=== PATIENT | female | born 1975 | race Caucasian/White ===

== ENCOUNTER 2018-01-22 10:47 | Observation (INO) | payer OTHER ==
[~2018-01-22] VITALS: Ht 167.6 cm; Wt 90.3 kg
[2018-01-22] MEDS ORDERED: FUROSEMIDE INJ 10 MG/ML 2 ML VIAL IV PRN (16:00)
[2018-01-22] MEDS ORDERED: SODIUM CHLORIDE 0.9% 250ML 250 ML IV ONE (16:00)
[2018-01-22 16:55] VITALS: BP 109/56
[2018-01-22 17:05] LABS: BASOPHILS % 0.6 % (0.0-1.0); EOSINOPHILS # (AUTO) 0.2 (0.0-0.4); EOSINOPHILS % 2.2 % (0.0-6.0); LYMPHOCYTES # (AUTO) 1.9 (1.0-3.2); LYMPHOCYTES % 26.5 % (18.0-39.1); MEAN CORPUSCULAR HGB CONC 25.6 g/dL (31-35); MEAN CORPUSCULAR VOLUME 58.8 fL (81-99); MONOCYTES # (AUTO) 0.5 (0.2-0.8); MONOCYTES % 6.5 % (4.4-11.3); NEUTROPHILS # (AUTO) 4.6 (2.1-6.9); NEUTROPHILS % 63.8 % (38.7-80.0); PLATELET COUNT 415 x10e3/uL (140-360); RED BLOOD COUNT 3.79 x10e6/uL (3.6-5.1); RED CELL DISTRIBUTION WIDTH 19.4 % (11.7-14.4)
[2018-01-22 17:09] LABS: HEMATOCRIT 22.3 % (34.2-44.1); HEMOGLOBIN 5.7 g/dL (12.0-16.0)
[2018-01-22 17:48] LABS: % IRON SATURATION 2 % (15-50); IRON 10 ug/dL (50-170); TOTAL IRON BINDING CAPACITY 633 ug/dL (261-478); TRANSFERRIN 452 mg/dL (180-382)
--- NOTE | 2018-01-22 18:44 | History and Physical ---
This 42-year-old female comes in with anemia, symptomatic. HISTORY OF PRESENT ILLNESS: Ms. Ac is a 42-year-old female with a history of apparent menorrhagia for the last couple of years. She has been having irregular bleeding of the uterus. Two months ago the patient started to have some palpitations. She did not think much of it, but yesterday the patient came to our office with symptomatic tachycardia and shortness of breath. She was found to have a pulse of about 120 per minute, just walking a few steps had a lot of pallor in her eyes, and checked her hemoglobin and hematocrit which was 5.6, and the patient was sent here for blood transfusion. PAST MEDICAL HISTORY: No medical history except for the menorrhagia. The patient has not seen an OB in a long time. PAST SURGICAL HISTORY: History of tummy tuck and also tonsillectomy. REVIEW OF SYSTEMS: Positive for chest pain, positive for shortness of breath, positive for palpitations. No nausea, vomiting, diarrhea, no constipation, no rectal bleeding. Positive for interim bleeding as mentioned above. No diplopia, no blurry vision. The patient is very fatigued. PHYSICAL EXAMINATION GENERAL: Alert and oriented x3. VITAL SIGNS: Temperature 98.1, blood pressure 109/56, pulse oximetry 99%, respirations 18, pulse 81 at this time. HEENT: Normocephalic, atraumatic. The patient has pallor. CVS: S1 and S2. Regular rate and rhythm. ABDOMEN: Nontender, nondistended. EXTREMITIES: No cyanosis, clubbing or edema. ASSESSMENT: Acute blood loss anemia. PLAN: Transfuse 2 units of packed red blood cells and monitor hemoglobin and hematocrit post transfusion. Plan to see OB. The patient needs an OB checkup. Will go ahead and consult Dr. Collier. Further recommendations depending on clinical course. Will continue to monitor the patient. Will keep her on telemetry. Job#: [id number]
[2018-01-22 19:10] VITALS: BP 104/67
[2018-01-22] MEDS ORDERED: SODIUM CHLORIDE 0.9% 250ML 250 ML ONE (20:03)
[2018-01-22] MEDS ORDERED: ACETAMINOPHEN 325 MG TAB PO PRN (20:15)
[2018-01-22 22:00] VITALS: BP 104/67
[2018-01-23 00:15] VITALS: BP 96/58
[2018-01-23 03:30] VITALS: BP 109/70
[2018-01-23 06:17] LABS: BASOPHILS % 0.5 % (0.0-1.0); EOSINOPHILS # (AUTO) 0.3 (0.0-0.4); EOSINOPHILS % 3.3 % (0.0-6.0); HEMATOCRIT 27.6 % (34.2-44.1); HEMOGLOBIN 7.8 g/dL (12.0-16.0); LYMPHOCYTES # (AUTO) 3.2 (1.0-3.2); LYMPHOCYTES % 36.3 % (18.0-39.1); MEAN CORPUSCULAR HEMOGLOBIN 17.7 pg (28-32); MEAN CORPUSCULAR HGB CONC 28.3 g/dL (31-35); MEAN CORPUSCULAR VOLUME 62.6 fL (81-99); MONOCYTES # (AUTO) 0.8 (0.2-0.8); NEUTROPHILS # (AUTO) 4.5 (2.1-6.9); NEUTROPHILS % 50.7 % (38.7-80.0); PLATELET COUNT 385 x10e3/uL (140-360); RED BLOOD COUNT 4.41 x10e6/uL (3.6-5.1); RED CELL DISTRIBUTION WIDTH 25.3 % (11.7-14.4)
[2018-01-23 06:41] LABS: ANION GAP 13.1 mmol/L (8-16); BLOOD UREA NITROGEN 12 mg/dL (7-26); BUN/CREATININE RATIO 18 (6-25); CALCIUM 9.2 mg/dL (8.4-10.2); CARBON DIOXIDE 21 mmol/L (22-29); CHLORIDE 108 mmol/L (98-107); CREATININE, SERUM 0.68 mg/dL (0.57-1.11); EST GLOMERULAR FILTRATION RATE > 60 ML/MIN (60-); GLUCOSE 100 mg/dL (74-118); POTASSIUM 4.1 mmol/L (3.5-5.1); SODIUM 138 mmol/L (136-145)
[2018-01-23 07:30] LABS: RBC MORPHOLOGY COMMENT ABNORMAL
[2018-01-23 07:34] LABS: PLATELET ESTIMATE ADEQUATE; PLATELET MORPHOLOGY COMMENT NORMAL
[2018-01-23 07:35] LABS: ANISOCYTOSIS MODE; ELLIPTOCYTE, RBC MODERATE; HYPOCHROMASIA MODERATE; POIKILOCYTOSIS SLIGHT
[2018-01-23] MEDS ORDERED: SODIUM CHLORIDE 0.9% 250ML 250 ML IV ONE (07:45)
[2018-01-23] MEDS ORDERED: FUROSEMIDE INJ 10 MG/ML 2 ML VIAL IV ONE (07:45)
[2018-01-23 07:47] VITALS: BP 126/69
[2018-01-23] MEDS ORDERED: IRON SUCROSE 100 MG in SODIUM CHLORIDE 0.9% 100 ML 100 ML IV SCH (10:00)
[2018-01-23 11:27] VITALS: BP 122/74
[2018-01-23] MEDS ORDERED: SODIUM CHLORIDE 0.9% 250ML 250 ML ONE (11:52)
[2018-01-23 14:39] VITALS: BP 122/74
[2018-01-23 15:45] VITALS: BP 117/74
[2018-01-23] MEDS ORDERED: SPRINTEC1 EACH PO (18:27)
[2018-01-23] MEDS ORDERED: COLACE100 MG PO (18:27)
[2018-01-23] MEDS ORDERED: IRON PO (18:28)
--- NOTE | 2018-01-24 13:06 | Diagnostic Imaging Report ---
PROCEDURE: Transabdominal and transvaginal ultrasound imaging of the pelvis was performed. TECHNIQUE: COMPARISON: None. INDICATIONS: BLOOD LOSS FINDINGS: UTERUS: The uterus measures 10.2 x 6.4 x 7.0 cm. The endometrial echocomplex measures 1.8 cm. Multiple anechoic regions are seen throughout the cervix, the largest measuring 1.5 x 1.3 x 1.2 cm. Increased vascularity is present in the region of the cervix. Focal 0.9 x 0.5 x 1.2 cm lesion is present in the superior portion of the uterus. OVARIES/ADNEXA: No adnexal mass. Right ovary 2.7 x 1.9 x 3.3 cm. The left ovary is not visualized. PELVIS: No free fluid. IMPRESSION: Increased vascularity of the cervix and increased thickening of the endometrium are indeterminate. An MRI of the pelvis with contrast may provide additional information for further characterization. Dictated by: Dillon Guerrero M.D. on 01/24/2018 at 13:07 Electronically approved by: Dillon Guerrero M.D. on 01/24/2018 at 13:07
== END 2018-01-23 18:44 | disposition home or self-care (01) ==
LOC: IMCU 14:47
PROVIDERS: ADMIT Family Medicine; ATTEND Family Medicine
DX: D62 Acute posthemorrhagic anemia (principal); N92.0 Excessive and frequent menstruation with regular cycle; D50.9 Iron deficiency anemia, unspecified; Z91.040 Latex allergy status
CPT/HCPCS: 36430; P9016; 36415; 76830; 80048; 83540; 84466; 85014; 85018; 85025; 86850; 86900; 86920; G0378; J1756; J1940; J7050

== ENCOUNTER 2019-08-18 11:21 | Inpatient (IN) | payer OTHER ==
[~2019-08-18] VITALS: Ht 170.2 cm; Wt 98.4 kg
[~2019-08-18 11:21] MED LIST: COLACE100 MG PO; IRON PO; SPRINTEC1 EACH PO
--- OUTSIDE RECORDS SUMMARY | 2019-08-18 11:24 | XMS REPORT ---
[facility] Address Unknown Phone Unavailable Care Team Providers Care Software Security Consultant Name Role Phone Yanci ORTEGA Unavailable Unavailable Payers Payer Name Policy Type Policy Number Effective Date Expiration Date Problems This patient has no known problems. Allergies, Adverse Reactions, Alerts Allergy Name Allergy Type Status Severity Reaction(s) Onset Date Inactive Date Treating Clinician Comments latex DA Active NE 2013-06-26 00:00:00 promethazine HCl DA Active SV 2013-06-12 00:00:00 Medications This patient has no known medications. Results Test Description Test Time Test Comments Text Results Atomic Results Result Comments [place] [address] Patient Name: NATA AWAN MR #: [id number] : 1975 Age/Sex: 42/F Req #: [id number] Adm Physician: KINGSLEY ORTEGA MD Ordered by: DOMENIC STOKES DO Report #: [id number] Location: [facility] Room/Bed: [place] [address] Procedure: [id number] US/US TRANSVAGINAL Exam Date: Exam Time: REPORT STATUS: Signed PROCEDURE: Transabdominal and transvaginal ultrasound imaging of the pelvis was performed. TECHNIQUE: COMPARISON: None. INDICATIONS: BLOOD LOSS FINDINGS: UTERUS: The uterus measures 10.2 x 6.4 x 7.0 cm. The endometrial echocomplex measures 1.8 cm. Multiple anechoic regions are seen throughout the cervix, the largest measuring 1.5 x 1.3 x 1.2 cm. Increased vascularity is present in the region of the cervix. Focal 0.9 x 0.5 x 1.2 cm lesion is present in the superior portion of the uterus. OVARIES/ADNEXA: No adnexal mass. Right ovary 2.7 x 1.9 x 3.3 cm. The left ovary is not visualized. PELVIS: No free fluid. IMPRESSION: Increased vascularity of the cervix and increased thickening of the endometrium are indeterminate. An MRI of the pe lvis with contrast may provide additional information for further characterization. Dictated by: Brian Henderson M.D. on 01/24/2018 at 13:07 Electronically approved by: Brian Henderson M.D. on 01/24/2018 at 13:07 Dictated By: BRIAN HENDERSON MD 1305 Transcribed By: SUMI on 01/24/18 1307 COPY TO: DOMENIC STOKES DO
[2019-08-18] MEDS ORDERED: MISOPROSTOL 100 MCG TAB PO ONE (12:02)
[2019-08-18 12:06] LABS: BASOPHILS % 0.3 % (0.0-1.0); EOSINOPHILS # (AUTO) 0.2 (0.0-0.4); EOSINOPHILS % 1.3 % (0.0-6.0); HEMATOCRIT 37.1 % (34.2-44.1); HEMOGLOBIN 12.5 g/dL (12.0-16.0); LYMPHOCYTES # (AUTO) 2.1 (1.0-3.2); LYMPHOCYTES % 17.9 % (18.0-39.1); MEAN CORPUSCULAR HEMOGLOBIN 30.5 pg (28-32); MEAN CORPUSCULAR HGB CONC 33.7 g/dL (31-35); MEAN CORPUSCULAR VOLUME 90.5 fL (81-99); MONOCYTES # (AUTO) 0.6 (0.2-0.8); MONOCYTES % 5.2 % (4.4-11.3); NEUTROPHILS # (AUTO) 8.8 (2.1-6.9); PLATELET COUNT 309 x10e3/uL (140-360); RED CELL DISTRIBUTION WIDTH 12.7 % (11.7-14.4)
[2019-08-18 12:22] LABS: ALANINE AMINOTRANSFERASE 30 IU/L (0-55); ALBUMIN 3.6 g/dL (3.5-5.0); ALKALINE PHOSPHATASE 77 IU/L (40-150); ANION GAP 13.5 mmol/L (8-16); BLOOD UREA NITROGEN 8 mg/dL (7-26); BUN/CREATININE RATIO 11 (6-25); CALCIUM 9.3 mg/dL (8.4-10.2); CARBON DIOXIDE 24 mmol/L (22-29); CHLORIDE 104 mmol/L (98-107); CREATININE, SERUM 0.76 mg/dL (0.57-1.11); EST GLOMERULAR FILTRATION RATE > 60 ML/MIN (60-); GLUCOSE 163 mg/dL (74-118); POTASSIUM 3.5 mmol/L (3.5-5.1); SODIUM 138 mmol/L (136-145)
[2019-08-18 12:29] LABS: BILIRUBIN,URINE NEGATIVE (NEGATIVE); CLARITY,URINE CLOUDY (CLEAR); COLOR,URINE RED (YELLOW); KETONES,URINE 1+ (NEGATIVE); LEUKOCYTE ESTERASE ,URINE LARGE (NEGATIVE); NITRITE,URINE POSITIVE (NEGATIVE)
[2019-08-18 12:41] LABS: PROTEIN,URINE DIPSTICK 3+ (NEGATIVE); URINE UROBILINOGEN 8 mg/dL (0.2 - 1)
[2019-08-18 12:52] LABS: BACTERIA,URINE MANY /HPF; EPITHELIAL CELLS,URINE MANY /LPF; RBC,URINE >50 /HPF (0-5); WBC,URINE (MAN) >50 /HPF (0-5)
[2019-08-18] MEDS: SODIUM CHLORIDE 0.9% 1000ML 1,000 ML IV SCH (12:56)
[2019-08-18] MEDS ORDERED: CEFTRIAXONE SOD 1 GM/NS 50 ML 50 ML IV ONE ×2 (13:30→17:15)
[2019-08-18 13:38] VITALS: BP 111/78
--- NOTE | 2019-08-18 13:45 | NUR ---
RECD PT FROM ER VIA W/C AAOX3,DENIES PAIN ,NO DISTRESS NOTED,IV INFUSING TO RT AC 20 GAUGE.HOB ELEVATED,CALL GONZÁLES IN REACH
--- NOTE | 2019-08-18 15:45 | NUR ---
PT TRANSPORTED TO CT SCAN VIA W/C
[2019-08-18 15:52] VITALS: BP 119/64
--- NOTE | 2019-08-18 16:14 | Diagnostic Imaging Report ---
EXAM: CT Abdomen and Pelvis WITH intravenous contrast INDICATION: Left abdominal pain COMPARISON: None. TECHNIQUE: Abdomen and pelvis were scanned utilizing a multidetector helical scanner from the lung base to the pubic symphysis after administration of IV contrast. Coronal and sagittal reformations were obtained. Routine protocol was performed. Scan was performed during portal venous phase. IV CONTRAST: 100mL of Isovue 370 ORAL CONTRAST: Water RADIATION DOSE: Total DLP: 787.7 mGy*cm Dose modulation, iterative reconstruction, and/or weight based adjustment of the mA/kV was utilized to reduce the radiation dose to as low as reasonably achievable. FINDINGS: LOWER THORAX: Large paraesophageal hiatal hernia (type III) with the majority of the stomach inverted and above the diaphragm. HEPATOBILIARY: Diffuse hepatic steatosis. No focal liver lesion. No intrahepatic biliary ductal dilation. Status post cholecystectomy. SPLEEN: No splenomegaly. PANCREAS: No focal masses or ductal dilatation. ADRENALS: No adrenal nodules. KIDNEYS/URETERS: No hydronephrosis, stones, or solid mass lesions. PELVIC ORGANS/BLADDER: Multiple hypodense lesions involving the cervix and proximal uterus. These findings are better evaluated on the transvaginal ultrasound performed on 01/23/2018. PERITONEUM / RETROPERITONEUM: No free air or fluid. LYMPH NODES: No lymphadenopathy. VESSELS: Unremarkable. GI TRACT: Sigmoid and descending colon diverticulosis with an area of mild wall thickening associated with several distal descending colon diverticuli and associated adjacent pericolonic fat stranding. No free air or focal drainable fluid collection. No other areas of abnormal bowel wall thickening. No bowel obstruction. BONES AND SOFT TISSUES: No acute osseous injury. No suspicious lytic or blastic lesions. IMPRESSION: Uncomplicated diverticulitis of the distal ascending colon. No drainable diverticular abscess. Diffuse hepatic steatosis. Large paraesophageal hiatal hernia (type III) with the majority of the stomach inverted and above the diaphragm. Signed by: Adam Haddad MD on 08/18/2019 4:10 PM
--- NOTE | 2019-08-18 16:30 | NUR ---
RETURNED TO ROOM.
--- NOTE | 2019-08-18 17:03 | NUR ---
PT UP IN BED DENIES PAIN,
[2019-08-18] MEDS: MORPHINE SULFATE INJ 4 MG/ML INJ 1ML IV PRN ×2 (18:00→22:31)
[2019-08-18] MEDS: ONDANSETRON HCL INJ 2MG/ML 2ML 2 MG/ML VIAL IV PRN ×2 (18:01→22:31)
[2019-08-18] MEDS ORDERED: ZOLOFT50 MG PO (18:06)
[2019-08-18 19:36] VITALS: BP 119/64
[2019-08-18 20:00] VITALS: BP 105/57
[2019-08-18] MEDS ORDERED: IOPAMIDOL 370 MG/ML 200 ML INFUS..BTL INJ ONE (20:39)
[2019-08-18] MEDS ORDERED: SODIUM CHLORIDE 0.9% 50ML 50 ML ONE (20:39)
[2019-08-19] VITALS (11 sets, daily range): BP systolic 101–121; BP diastolic 62–75
[2019-08-19] MEDS: SODIUM CHLORIDE 0.9% 1000ML 1,000 ML IV SCH ×3 (01:24→21:01)
[2019-08-19 06:02] LABS: BASOPHILS % 0.4 % (0.0-1.0); EOSINOPHILS # (AUTO) 0.2 (0.0-0.4); EOSINOPHILS % 2.3 % (0.0-6.0); HEMATOCRIT 30.9 % (34.2-44.1); HEMOGLOBIN 10.1 g/dL (12.0-16.0); LYMPHOCYTES # (AUTO) 2.1 (1.0-3.2); LYMPHOCYTES % 20.8 % (18.0-39.1); MEAN CORPUSCULAR HEMOGLOBIN 30.2 pg (28-32); MEAN CORPUSCULAR HGB CONC 32.7 g/dL (31-35); MEAN CORPUSCULAR VOLUME 92.5 fL (81-99); MONOCYTES # (AUTO) 0.8 (0.2-0.8); MONOCYTES % 7.7 % (4.4-11.3); NEUTROPHILS # (AUTO) 6.9 (2.1-6.9); NEUTROPHILS % 68.3 % (38.7-80.0); PLATELET COUNT 236 x10e3/uL (140-360); RED BLOOD COUNT 3.34 x10e6/uL (3.6-5.1); RED CELL DISTRIBUTION WIDTH 12.8 % (11.7-14.4)
[2019-08-19 06:25] LABS: ALANINE AMINOTRANSFERASE 22 IU/L (0-55); ALBUMIN 2.9 g/dL (3.5-5.0); ALKALINE PHOSPHATASE 58 IU/L (40-150); ANION GAP 10.6 mmol/L (8-16); BLOOD UREA NITROGEN 7 mg/dL (7-26); BUN/CREATININE RATIO 11 (6-25); CALCIUM 7.9 mg/dL (8.4-10.2); CARBON DIOXIDE 23 mmol/L (22-29); CHLORIDE 109 mmol/L (98-107); CREATININE, SERUM 0.64 mg/dL (0.57-1.11); EST GLOMERULAR FILTRATION RATE > 60 ML/MIN (60-); GLUCOSE 102 mg/dL (74-118); POTASSIUM 3.6 mmol/L (3.5-5.1); SODIUM 139 mmol/L (136-145)
--- NOTE | 2019-08-19 07:30 | NUR ---
PT IN BED SLEEPING NO S/S DISCOMFORT.
[2019-08-19 07:39] LABS: FERRITIN 17.54 ng/mL (4.63-204.00)
[2019-08-19] MEDS: ONDANSETRON HCL INJ 2MG/ML 2ML 2 MG/ML VIAL IV PRN (07:43)
[2019-08-19] MEDS: MORPHINE SULFATE INJ 4 MG/ML INJ 1ML IV PRN (07:43)
[2019-08-19] MEDS ORDERED: LORAZEPAM 0.5 MG TAB PO PRN (09:00)
[2019-08-19] MEDS ORDERED: TRAZODONE HCL 50 MG TAB PO PRN (09:00)
[2019-08-19] MEDS ORDERED: CIPROFLOXACIN 400 MG/D5W 200ML 200 ML IV SCH (10:00)
[2019-08-19] MEDS: METRONIDAZOLE 500MG/NS 100ML 100 ML IV SCH ×3 (10:27→21:01)
--- NOTE | 2019-08-19 11:47 | History and Physical ---
REASON FOR ADMISSION: A 43-year-old female with a history of abdominal pain, history of chronic vaginal bleeding and left lower quadrant pain, was admitted to the hospital for abdominal pain and also profuse bleeding. The patient also had some suicidal ideation the day prior to the hospital admission. HISTORY OF PRESENT ILLNESS: Ms. Makenna Lancaster is a 43-year-old female with a longstanding history of abdominal pain. She had acute abdominal pain 2 days prior to admission, left lower quadrant. She withered out over the weekend and on Sunday, the patient had called me saying her vaginal bleeding was profuse and she was suicidal. The patient was asked to come to the emergency room and the patient was seen later on in the clinic yesterday and the patient was directly admitted to the hospital for: 1. Suicidal ideation. 2. Also for abnormal uterine bleeding with possible anemia. The patient has a long-standing history of iron deficiency anemia and also blood loss anemia from the uterus and has been transfused in the past. She has had ablation of the uterine wall about 6 years ago at [facility] and the bleeding is perfused at this time. PAST MEDICAL HISTORY: History of depression. She has tried multiple SSRIs includes the Zoloft and Trintellix. But the Trintellix apparently made her more suicidal. The patient's other medical history includes iron deficiency anemia and blood loss anemia a year ago, was admitted to the hospital for blood transfusions. SOCIAL HISTORY: Lives with and children. Has a high stress job and the emotional anxiety, and burden is having on her at this time. PAST SURGICAL HISTORY: History of gallbladder removal. ALLERGIES: ALLERGIC TO LATEX AND FLUMETHASONE. REVIEW OF SYSTEMS: Negative for chest pain. No shortness of breath. No nausea, vomiting, or diarrhea. No constipation. No rectal bleeding. No hematochezia. No hematemesis. Positive for profuse vaginal bleeding. Apparently, she changes about 6-7 pads out in a single day. Abdominal pain positive in the left lower quadrant. PHYSICAL EXAMINATION: VITAL SIGNS: Temperature is 97.6, pulse of 82, respirations of 18, blood pressure is 101/62, and pulse oximetry of 94% on room air. HEENT: Normocephalic, atraumatic. Pupils are reactive to light and accommodation. CVS: S1 and S2 normal. Regular rate and rhythm. ABDOMEN: Nondistended. Tender in the left lower quadrant. No rebound, no guarding present. EXTREMITIES: No clubbing, no cyanosis, no edema. LABORATORY VALUES: Initial white count is 11.70, hemoglobin of 12.5, hematocrit 37.2, neutrophil count is 8.8. Chemistry shows sodium of 138, potassium 3.5, BUN of 8, creatinine 0.76. HCT was negative. Urine, cloudy, protein 3+, leukocyte esterase was large. IMAGING STUDY: 1. Shows uncomplicated diverticulitis of the distal ascending colon. No drainable diverticular abscess. 2. Diffuse hepatic steatosis. 3. Large paraesophageal hiatal hernia with the majority of stomach converted above the diaphragm. ASSESSMENT: 1. Diverticulitis. We will start her on Cipro and Flagyl and also give her some Bentyl as needed. 2. For vaginal bleeding, a transvaginal ultrasound will be done. A phone to Dr. Richardson has been done and for the paraesophageal hiatal hernia type 3. She will need a Terry fundoplication later on, needed GI evaluation and consultation for her suicidal ideation. The carotid sheath Dr. Zabrina Hodge consult has been done. We will hold off on antidepressant at this time and have the psychiatrist look at this. Further recommendation per clinical course. We will continue to monitor the patient and also have a consult with Dr. Jose Juan Brownlee. We will continue monitor the patient along with consultants. MD MAYRA IngramJ/MODL /[id number]
--- NOTE | 2019-08-19 12:00 | NUR ---
PT REFUSED IN HOUSE PSYCH
--- NOTE | 2019-08-19 13:08 | Diagnostic Imaging Report ---
Exam: Pelvic ultrasound. History: Vaginal bleeding Comparison: CT abdomen and pelvis of 08/18/2019, transvaginal ultrasound of 01/23/2018 Findings: Transvaginal sonographic evaluation of the pelvis. The uterus is anteverted in position, measuring 8.0 x 5.5 x 7.0 cm. The uterus appears heterogeneous. There is a hypoechoic 1.1 x 0.6 x 0.9 cm lesion superiorly, likely a fibroid. Endometrial stripe thickness is 12 millimeters. The right ovary measures 1.8 x 1.4 x 1.3 cm. The left ovary measures 2.5 x 2.1 x 1.8 cm and contains a 1.6 x 1.7 x 1.4 cm cystic lesion with an internal septation. There are numerous Nabothian cysts of the cervix, the largest of which measures 1.5 x 1.7 x 1.3 cm. Impression: Numerous Nabothian cysts of the cervix measuring up to 1.5 x 1.7 x 1.3cm. Thickened endometrium measuring up to 12mm, which is beyond the limits of normal in a reportedly post-menopausal woman. Recommend endometrial sampling. 1.1cm uterine fibroid. Signed by: Adam Haddad MD on 08/19/2019 1:05 PM
[2019-08-19] MEDS: BUPROPION HCL 75 MG TAB PO SCH ×2 (13:12→18:02)
--- NOTE | 2019-08-19 13:20 | NUR ---
SPOKE WITH PATIENT ABOUT INPATIENT PSYCH FACILITIES, SHE STATES THAT SHE DID NOT REALIZE IT WAS IN PATIENT WANTS OUT PATIENT. REFUSING INPATIENT, WILL LET BITE BLOCK MAKER KNOW.
--- NOTE | 2019-08-19 15:00 | NUR ---
Visit made by the Spiritual Care Department Pastoral Visitor, Ronna Larkin. PV provided pastoral presence, prayer, hospitality, and supportive listening. Pastoral Visitor informed pt/family of the scope of [employer] Services and availability. CHUCKY BARNEY Consulting Manager Spiritual Care Department O: [phone] Pager: [phone] ([phone] number calling from)
--- NOTE | 2019-08-19 15:30 | NUR ---
Nutrition Screen Note RD Recommendation for Physician: - Continue current diet Plan of Care: RD following, monitoring for tolerance and adequacy Nutrition reason for involvement: Nutrition Risk Trigger- MST2 Primary Diagnose(s): vaginal bleeding, abdominal pain, anemia PMH: cholecystectomy, depression, Fe deficiency, anemia Ht: 67 in Wt: 217.5 lb BMI: 34.1 kg/m2 IBW: [address] Assessment: (08/19) 43 YOF admitted for vaginal bleeding, evaluated today for MST screen. Pt out of room for CT scan at time of visit. pt's at bedside reports pt eating well OFF PREMISE SERVICE REPRESENTATIVE and eating well since admit. Pt's reports that pt is wt stable. Pt with no reported N/V/C/D. Pt's with no questions or concerns at time of visit. Chart reviewed. Labs and meds reviewed. Will monitor and continue to follow. Current Diet: Cardiac Malnutrition Evaluation (08/19/19) The patient does not meet criteria for a specified degree of malnutrition at this time. Will re-evaluate at follow-up as appropriate. Diet Education Needs Assessment: Diet education not indicated. Diet tolerance: tolerating po Nutrition Care Level: low Signed: Nubia Laguna RD, LD, [facility]
[2019-08-19] MEDS ORDERED: ACETAMINOPHEN 325 MG TAB PO PRN (16:15)
--- NOTE | 2019-08-19 18:11 | NUR ---
PT UP IN BED NO FUTHER C/O HEADACE
--- NOTE | 2019-08-19 19:30 | NUR ---
REPORT GIVEN TO BRITT GALDAMEZ. PATIENT WILL BE TRANSFERRING TO ROOM 185 AFTER SHE SHOWERS. SPOUSE AT THE BEDSIDE.
[2019-08-20] VITALS (8 sets, daily range): BP systolic 101–127; BP diastolic 64–87
[2019-08-20] MEDS ORDERED: CIPROFLOXACIN 400 MG/D5W 200ML 200 ML IV SCH (01:00)
--- NOTE | 2019-08-20 01:41 | Consultation ---
DATE OF CONSULTATION: 08/19/2019 REASON FOR CONSULTATION: Evaluate the patient's mood. HISTORY OF PRESENT ILLNESS: The patient is a 43-year-old female, admitted to the hospital for vaginal bleeding, anemia, and abdominal pain. Psychiatric consultation was called to evaluate the patient's mood. As per the medical record, the patient history of depression. She had been on Zoloft and Trintellix, which she reported to [facility] that made her more suicidal. The patient has a long history of abdominal pain. She reported to her medical doctor that she was having vaginal bleeding and admitted to him that she was suicidal. She was asked to go to the ER. Upon evaluation today, the patient was found to be in the room. Her is in there. She agrees for him to be in the room during our assessment. The patient is alert, awake, and oriented to situation. She reports that she has been increasingly depressed and anxious due to her job and her health. She reports feeling hopeless and helpless at times. She denies any suicidal or homicidal ideation at this time, but admits to having suicidal ideation on Sunday. She claims at times she planned to overdose on her medications. She state that she has history of cutting and had the urge to self-harm. The patient does not have any history of seizure. PAST PSYCHIATRIC HISTORY: The patient denies any past psychiatric history, although she admits to self-harm in the past. She denies past suicide attempts. She reports drinking alcohol occasionally. Denies any drug use. FAMILY HISTORY: The patient claims her mom has history of depression and anxiety. SOCIAL HISTORY: The patient states she lives with her son and daughter, who is 6-year-old. MENTAL STATUS EXAM: The patient is middle-aged female. She is alert, awake, and oriented to situation. Her mood is depressed and anxious. She denies any suicidal or homicidal ideation at this time. Denies any hallucination. Thought process is concrete. Affect congruent with mood. Psychomotor state is passive. No paranoia or delusion elicited. Insight and judgment are fair. Memory appears to be grossly intact. CURRENT MEDICATIONS: 1. Acetaminophen. 2. Metronidazole/sodium chloride. 3. Sodium chloride. 4. Ciprofloxacin. 5. Morphine. 6. Ondansetron. CURRENT LABS: WBC 10.12, RBC 3.34, hemoglobin 10.1, hematocrit 30.9, and platelets 236. Sodium 139, potassium 3.6, chloride 109, CO2 of 23, BUN 7, and creatinine 0.64. AST 11 and ALT 22. ASSESSMENT: Major depressive disorder, recurrent, severe. PLAN: 1. Wellbutrin 75 mg p.o. b.i.d. 2. Ativan p.r.n. 3. Atrovent p.r.n. 4. Monitor for mood. 5. Supportive therapy. 6. The patient initially agreed for inpatient psychiatry, but later changed her mind. 7. Discussed with case management. 8. At this time, the patient may need inpatient psychiatry and would benefit from it. 9. She is not cleared from psychiatric standpoint until further evaluation and until we discuss with family members. Thank you for this consultation. Dictated by Josey Woo PA-C Zabrina Hodge MD QTV/MODL /[id number]
[2019-08-20] MEDS: METRONIDAZOLE 500MG/NS 100ML 100 ML IV SCH ×4 (03:00→20:19)
[2019-08-20] MEDS: CIPROFLOXACIN 400 MG/D5W 200ML 200 ML IV SCH ×2 (03:12→15:20)
--- NOTE | 2019-08-20 04:22 | Consultation ---
DATE OF CONSULTATION: 08/19/2019 REASON FOR CONSULTATION: The patient is a 43-year-old 5, para 3-0-2-3, who presents with postmenopausal bleeding. She states she has been menopausal since about age 40 and that her mother and sister were both menopausal at age 40 as well. She was admitted to the hospital for abnormal uterine bleeding. Her hemoglobin has gone from 12.5 to 10.1 and she is undergoing therapy for the abnormal bleeding. PAST MEDICAL HISTORY: Remarkable for diverticulosis and hiatal hernia. PAST SURGICAL HISTORY: Remarkable for laparoscopic cholecystectomy and two voluntary terminations of and she also had a tummy tuck in 2005. OB HISTORY: Remarkable for three normal spontaneous vaginal deliveries. The 1st one in 1995, 2nd one in 1997, and 3rd one in 2012. All her infants were around 7 pounds and the 1st two were uncomplicated, the 3rd one was complicated by gestational diabetes treated with diet. FAMILY HISTORY: Remarkable for father with hypertension and diabetes. Sister with a bowel disorder and mother and sister with early menopause both at approximately age 40. PHYSICAL EXAMINATION: VITAL SIGNS: The patient's height is 67 inches, weight is 217 pounds. Her temperature is 98.1, pulse 90, respirations 16, and blood pressure 110/71. ABDOMEN: Her abdomen shows hyperactive bowel sounds with mild left lower quadrant tenderness and no rebound noted. PELVIC: Deferred to surgery due to the patient's bleeding. LABORATORY VALUES: Latest white count 10.1, hemoglobin 10.1, hematocrit 30.9, and platelets 326. HCG is negative. Her admission H and H were 12.5 and 37.1. Anemia testing, serum iron was 41, iron binding capacity 339 and 12% saturation. CT scan shows liver with diffuse steatosis and status post cholecystectomy, hiatal hernia. Uterus with multiple hypodense lesions involving the cervix, which on ultrasound have been shown to be nabothian cysts. GI evaluation revealed on the CT scan, diverticulosis with diverticulitis of the distal ascending colon. Ultrasound showed a uterus measuring 8.0 x 5.5 x 7.0, heterogeneous with 1.1 x 0.6 x 0.9 cm superior lesion most likely a fibroid. The endometrium is 12 mm thick. The right ovary measures 1.8 x 1.4 x 1.3 cm. The left ovary measures 2.5 x 2.1 x 1.8 cm with a 1.6 x 1.7 cm cystic lesion. There are numerous nabothian cysts noted on ultrasound. Impression on ultrasound, thickened endometrium of 1.2 cm and 1.1 cm superior uterine fibroid. IMPRESSION: Postmenopausal bleeding, rule out endometrial cancer. PLAN: D and C is scheduled for the morning due to the patient's heavy bleeding. If she were not bleeding so heavily, office biopsy would be preferred. Risks and benefits of surgery were discussed in detail with the patient. We will plan for D and C for tissue analysis to rule out endometrial cancer. Possible diagnoses for the patient were disordered endometrium, uterine cancer, endometrial hyperplasia, and fibroid uterus is the possible etiologies of her bleeding. The patient and her understand the risks and benefits of the D and C and agreed to proceed with a D and C, we will plan for it in the morning. Thank you very much for this consultation. MD MISAEL Lopez/MODL /[id number]
[2019-08-20] MEDS ORDERED: IRON SUCROSE 100 MG in SODIUM CHLORIDE 0.9% 100 ML 100 ML IV SCH (07:00)
--- NOTE | 2019-08-20 07:09 | NUR ---
Report given to day nurse. patient is resting comfortably in bed. bed is in lowest position and call cobb is within reach.
--- NOTE | 2019-08-20 07:34 | Progress Note ---
DATE: SUBJECTIVE: A 43-year-old female, who comes in with excessive uterine bleeding, abdominal pain, and also suicidal ideation. The patient is currently still having a lot of nausea and abdominal pain. She is scheduled for D and C today and the patient is apprehensive. The patient also has abdominal pain, which is in left lower quadrant. CT scan and transvaginal ultrasound show diverticulitis and also transvaginal showed endometrial thickening. OBJECTIVE: VITAL SIGNS: Temperature is 98.5, pulse of 85, respirations of 20, blood pressure is 106/64, pulse oximetry of 94%. HEENT: Normocephalic and atraumatic. Pupils are reactive to light and accommodation. Flat affect. CVS: S1 and S2 normal. Regular rate and rhythm. ABDOMEN: Tender in the left lower quadrant and suprapubic area. EXTREMITIES: No clubbing, no cyanosis, no edema. LABORATORY VALUES: Hemoglobin is 10.1, hematocrit 30.9. Chemistry; sodium 139, potassium 3.6, BUN of 7, creatinine of 0.76. Iron was 41, transferrin of 242%, saturation of 12. The patient's urine positive for nitrites. ASSESSMENT: 1. Makenna Ruttiger with excessive uterine bleeding, postmenopausal, scheduled for D and C. 2. Diverticulitis. The patient is on Levaquin and Flagyl at this time. 3. History of depression and suicidal ideation, seen by Psychiatry and the patient is started on lorazepam as needed, trazodone at nighttime, and also bupropion twice a day. Further recommendation per clinical course and depending on the findings of D and C. MD ANGIE Ingram/ODESSAL /[id number]
[2019-08-20] MEDS: ONDANSETRON HCL INJ 2MG/ML 2ML 2 MG/ML VIAL IV PRN (07:48)
[2019-08-20] MEDS: MORPHINE SULFATE INJ 4 MG/ML INJ 1ML IV PRN (07:48)
[2019-08-20] MEDS: IRON SUCROSE 100 MG in SODIUM CHLORIDE 0.9% 100 ML 100 ML IV SCH (08:48)
[2019-08-20] MEDS: BUPROPION HCL 75 MG TAB PO SCH ×2 (09:00→16:15)
[2019-08-20] MEDS ORDERED: OXYTOCIN INJ 10 UNIT/ML VIAL ONE (12:21)
--- NOTE | 2019-08-20 12:32 | NUR ---
PT TO FOLLOW UP WITH BEHAVIORAL HEALTH WITHIN 1 WEEK OF DISCHARGE, CALL TO MAKE A APPOINTMENT WITH CLOSEST LOCATION TO THEM [phone]
--- NOTE | 2019-08-20 13:45 | NUR ---
report received from recovery for patient's return from D&C procedure. Vital signs are stable and she will arrive via stretcher.
[2019-08-20] MEDS ORDERED: ONDANSETRON HCL INJ 2MG/ML 2ML 2 MG/ML VIAL ONE ×2 (13:53→14:23)
[2019-08-20] MEDS ORDERED: METOCLOPRAMIDE HCL 10 MG/2ML VIAL ONE (13:53)
[2019-08-20] MEDS ORDERED: PROPOFOL IV EMULSION 10 MG/ML 20 ML VIAL ONE (14:23)
[2019-08-20] MEDS ORDERED: DEXAMETHASONE SOD PHOS INJ 4 MG/ML VIAL ONE (14:23)
[2019-08-20] MEDS ORDERED: KETOROLAC TROMETHAMINE 30 MG/ML VIAL ONE (14:23)
[2019-08-20] MEDS ORDERED: LIDOCAINE HCL 2% LOCAL INJ 5 ML SDV VIAL INJ ONE (14:23)
[2019-08-20] MEDS ORDERED: SEVOFLURANE INHAL SOLN 250 ML PEN BTL ONE (14:23)
[2019-08-20] MEDS: SODIUM CHLORIDE 0.9% 1000ML 1,000 ML IV SCH (17:21)
--- NOTE | 2019-08-20 17:55 | NUR ---
report given to Alix at this time for patient transfer to new unit. patient and aware of change and patient will travel via wheelchair.
--- NOTE | 2019-08-20 18:37 | NUR ---
Patient transferred to unit from OBS. Patient is AAOx3. Post op D&C. Some bleeding noted. Lung orourke clear to auscultation. Bowel sounds present x4. Left forearm IV in place. IV fluids infusing.
--- NOTE | 2019-08-20 18:46 | Operative Report ---
DATE OF PROCEDURE: 08/20/2019 SURGEON: Austyn Richardson MD PREOPERATIVE DIAGNOSIS: Postmenopausal bleeding, rule out endometrial carcinoma. POSTOPERATIVE DIAGNOSIS: Postmenopausal bleeding, rule out endometrial carcinoma, pending pathology and fibroid uterus. TITLE OF PROCEDURE: Dilatation and curettage. ANESTHESIA: General with Dr. Dunaway. INDICATION FOR OPERATION: The patient is a 43-year-old 5, para 3-0-2-3, who has a family history of premature menopause and states she has been menopausal for a while with hot flashes and no menses, and she presents now after not having menses for a while with heavy bleeding. Ultrasound revealed a fibroid in the uterus with a thickened endometrium approximately 1.2 cm in size. She is therefore taken to the operating room at this time for dilatation and curettage to rule out endometrial carcinoma. FINDINGS AT SURGERY: There was an 8 to 10 week size nodular mobile uterus. Good candidate for laparoscopic hysterectomy or laparoscopic-assisted vaginal hysterectomy. There were no adnexal masses. There were 2 small fibroids noted in the posterior wall of the uterus in the lower uterine segment. These did not include the endometrial cavity to the point where we could not do a D and C, and the uterus was sounded to 10 cm and tissue was obtained and sent to pathology for definitive diagnosis. DESCRIPTION OF PROCEDURE: The patient was taken to the operating room and placed on the table in supine position. General anesthesia was administered. The patient was then placed in the lithotomy position. The perineum was prepared and draped in the usual sterile manner. Pelvic exam revealed an 8 to 10 week size nodular mobile uterus with no adnexal masses. The bladder was drained by in and out catheterization. A weighted speculum was placed in the posterior vaginal wall and with the aid of a right angle retractor, the anterior lip of the cervix was grasped with a ring forceps because the cervix appeared to be open. The uterus was sounded to 10 cm. Velasco dilators were used to dilate the endocervical canal. Then, using a sharp curette, the endometrial cavity was curetted. Curettage was continued on all 4 hunter of the uterus until the uterine cry was felt on all 4 hunter. Dark clots versus tissue was obtained and sent to pathology for definitive diagnosis. Again, curettage was continued until the uterine cry was felt on all 4 hunter of the uterus. At this point, once it was felt that a good adequate specimen was obtained, the procedure was then deemed terminated. All the instruments were removed from the vagina. There were no complications noted. Estimated blood loss was 25 mL. The patient tolerated the procedure well and was transferred from the operating room to the recovery room in stable condition. Austyn Richardson MD DKVolodymyr/MODL /[id number] cc: Mateo Murdock MD
--- NOTE | 2019-08-20 23:53 | NUR ---
bp 112/61 mmhg, hr 81 b/min.
[2019-08-21] VITALS (8 sets, daily range): BP systolic 91–117; BP diastolic 57–66
[2019-08-21] MEDS: SODIUM CHLORIDE 0.9% 1000ML 1,000 ML IV SCH ×2 (01:54→06:41)
[2019-08-21] MEDS: MORPHINE SULFATE INJ 4 MG/ML INJ 1ML IV PRN ×2 (02:01→20:12)
[2019-08-21] MEDS: METRONIDAZOLE 500MG/NS 100ML 100 ML IV SCH ×4 (02:22→21:09)
[2019-08-21] MEDS: CIPROFLOXACIN 400 MG/D5W 200ML 200 ML IV SCH ×2 (03:24→15:04)
--- NOTE | 2019-08-21 05:54 | Progress Note ---
DATE: 08/20/2019 Psychiatric Progress Note SUBJECTIVE: The patient evaluated and events noted. The patient is in the room. She states that she is doing better. She denies any suicidal ideation. She claims that her last suicidal ideation was 3 days ago. She denies any hallucination. She denies any problem with sleep or appetite. She denies any side effects from medication. The patient gives permission to talk to her . As per her , the patient is doing well. He does not have any concern regarding going home and he does not believe that she would hurt herself or other people. The patient refused inpatient psychiatry at this time. Discussed with Dr. Hodge. ASSESSMENT: Major depressive disorder, recurrent, moderate to severe. PLAN: 1. Continue with Wellbutrin 75 mg p.o. b.i.d. 2. Continue with p.r.n. Ativan. 3. Continue with trazodone 50 mg p.o. at bedtime p.r.n. 4. Monitor for mood. 5. Supportive therapy. 6. The patient is cleared from Psychiatry standpoint to go home with family members. Discussed with Case Management. Dictated by Josey Woo PA-C Zabrina Hodge MD QTV/MODL /[id number]
[2019-08-21 06:35] LABS: BASOPHILS % 0.2 % (0.0-1.0); EOSINOPHILS % 0.1 % (0.0-6.0); HEMATOCRIT 24.4 % (34.2-44.1); LYMPHOCYTES % 16.6 % (18.0-39.1); MEAN CORPUSCULAR HEMOGLOBIN 30.3 pg (28-32); MEAN CORPUSCULAR HGB CONC 32.8 g/dL (31-35); MEAN CORPUSCULAR VOLUME 92.4 fL (81-99); MONOCYTES # (AUTO) 0.9 (0.2-0.8); MONOCYTES % 7.6 % (4.4-11.3); NEUTROPHILS # (AUTO) 9.1 (2.1-6.9); NEUTROPHILS % 74.2 % (38.7-80.0); PLATELET COUNT 274 x10e3/uL (140-360); RED BLOOD COUNT 2.64 x10e6/uL (3.6-5.1); RED CELL DISTRIBUTION WIDTH 12.9 % (11.7-14.4)
[2019-08-21 07:02] LABS: ALANINE AMINOTRANSFERASE 17 IU/L (0-55); ALBUMIN 2.7 g/dL (3.5-5.0); ALKALINE PHOSPHATASE 59 IU/L (40-150); ANION GAP 8.7 mmol/L (8-16); BLOOD UREA NITROGEN 5 mg/dL (7-26); BUN/CREATININE RATIO 9 (6-25); CALCIUM 8.2 mg/dL (8.4-10.2); CARBON DIOXIDE 25 mmol/L (22-29); CHLORIDE 106 mmol/L (98-107); CREATININE, SERUM 0.58 mg/dL (0.57-1.11); EST GLOMERULAR FILTRATION RATE > 60 ML/MIN (60-); GLUCOSE 108 mg/dL (74-118); POTASSIUM 3.7 mmol/L (3.5-5.1); SODIUM 136 mmol/L (136-145)
--- NOTE | 2019-08-21 07:32 | NUR ---
Rcvd patient in report this am. Patient is asleep in bed at this time. No s/s of distress noted
[2019-08-21] MEDS: BUPROPION HCL 75 MG TAB PO SCH ×2 (08:38→17:49)
[2019-08-21] MEDS: IRON SUCROSE 100 MG in SODIUM CHLORIDE 0.9% 100 ML 100 ML IV SCH (09:40)
--- NOTE | 2019-08-21 12:00 | NUR ---
Patient is AAOx3. Post op D&C. Bleeding stopped at this time. Just mild spotting. No c/o pain at this time. Lung orourke clear to auscultation. Bowel sounds present x4. Left AC IV in place. IV fluids infusing
--- NOTE | 2019-08-21 14:46 | Progress Note ---
DATE: 08/21/2019 Psychiatric Progress Note SUBJECTIVE: The patient is evaluated and events noted. The patient is in the room. She is oriented to situation. She reports feeling less depressed. She denies any suicidal ideation. She complained of poor sleep. She denies any problem with appetite. She denies any side effects with medication. ASSESSMENT: Major depressive disorder, recurrent, moderate. PLAN: 1. Continue Wellbutrin 75 mg p.o. b.i.d. 2. Continue p.r.n. Ativan. 3. Continue trazodone 50 mg p.o. at bedtime schedule. 4. Monitor for mood. 5. Supportive therapy. Dictated by Josey Woo PA-C Zabrina Hodge MD QTV/MODL /[id number]
[2019-08-21] MEDS ORDERED: MIDAZOLAM HCL 2 MG/2 ML VIAL ONE (15:07)
[2019-08-21] MEDS ORDERED: FENTANYL CITRATE/PF 100MCG/2 ML INJ ONE (15:07)
[2019-08-21] MEDS: BISACODYL 5 MG TAB EC PO SCH (17:49)
[2019-08-21] MEDS ORDERED: TRAZODONE HCL 50 MG TAB PO SCH (21:00)
--- NOTE | 2019-08-21 21:19 | Progress Note ---
DATE: SUBJECTIVE: The patient came in with abnormal vaginal bleeding, anemia, abdominal pain, and suicidal ideation. The patient underwent an endometrial biopsy, D and C, awaiting for results. The patient's bleeding has been continuing. Abdominal pain is better, but the patient's suicidal ideation has disappeared. The patient has been started on antidepressants and is currently on antibiotics for acute ascending diverticulitis, feeling better, tolerating food. OBJECTIVE: VITAL SIGNS: Temperature is 97.6, pulse of 84, respirations of 17, blood pressure is 103/57, and pulse oximetry of 96%. HEENT: Normocephalic and atraumatic. Pupils are reactive to light and accommodation. CVS: S1 and S2 normal. Regular rate and rhythm. ABDOMEN: Tender in the right lower quadrant and left lower quadrant and suprapubic area. EXTREMITIES: No clubbing, no cyanosis, no edema. LABORATORY VALUES: Hemoglobin is 8, hematocrit of 24.4, neutrophil count is 9.1. Chemistries; sodium 136, potassium 3.7, BUN of 5, and creatinine 0.58. The rest of the labs were normal. Urine, bacteria many and large leukocyte esterase. MEDICATIONS: Cipro and morphine for pain. She is on IV fluids and is also on iron sucrose and Flagyl. ASSESSMENT: 1. Blood loss anemia. 2. Uncontrolled vaginal bleeding. 3. Diverticulitis. 4. Urinary tract infection. 5. Suicidal ideation. 6. Insomnia. PLAN: Continue with all the medications. All medicines reviewed. The patient is currently on bupropion 75 mg twice a day. Further recommendations per clinical course. The patient can be discharged tomorrow on p.o. antibiotics and will follow up with me in about a week's time. MD MAYRA IngramJ/MODL /[id number]
[2019-08-22] VITALS: BP 108/60
[2019-08-22] MEDS: ONDANSETRON HCL INJ 2MG/ML 2ML 2 MG/ML VIAL IV PRN ×3 (01:10→10:19)
[2019-08-22] MEDS: CIPROFLOXACIN 400 MG/D5W 200ML 200 ML IV SCH (02:30)
[2019-08-22] MEDS: METRONIDAZOLE 500MG/NS 100ML 100 ML IV SCH ×2 (03:36→09:00)
[2019-08-22 04:00] VITALS: BP 118/72
[2019-08-22 05:28] LABS: BASOPHILS # (AUTO) 0.1 (0.0-0.1); BASOPHILS % 0.5 % (0.0-1.0); EOSINOPHILS # (AUTO) 0.2 (0.0-0.4); EOSINOPHILS % 1.7 % (0.0-6.0); HEMATOCRIT 26.4 % (34.2-44.1); HEMOGLOBIN 8.5 g/dL (12.0-16.0); LYMPHOCYTES # (AUTO) 2.6 (1.0-3.2); LYMPHOCYTES % 28.6 % (18.0-39.1); MEAN CORPUSCULAR HGB CONC 32.2 g/dL (31-35); MEAN CORPUSCULAR VOLUME 93.3 fL (81-99); MONOCYTES # (AUTO) 0.8 (0.2-0.8); MONOCYTES % 8.3 % (4.4-11.3); NEUTROPHILS # (AUTO) 5.4 (2.1-6.9); NEUTROPHILS % 59.4 % (38.7-80.0); PLATELET COUNT 309 x10e3/uL (140-360); RED BLOOD COUNT 2.83 x10e6/uL (3.6-5.1); RED CELL DISTRIBUTION WIDTH 13.2 % (11.7-14.4)
[2019-08-22 05:47] LABS: ANION GAP 10.8 mmol/L (8-16); BLOOD UREA NITROGEN < 5 mg/dL (7-26); CALCIUM 8.1 mg/dL (8.4-10.2); CARBON DIOXIDE 24 mmol/L (22-29); CHLORIDE 107 mmol/L (98-107); CREATININE, SERUM 0.65 mg/dL (0.57-1.11); EST GLOMERULAR FILTRATION RATE > 60 ML/MIN (60-); GLUCOSE 98 mg/dL (74-118); POTASSIUM 3.8 mmol/L (3.5-5.1); SODIUM 138 mmol/L (136-145)
[2019-08-22 05:48] LABS: BUN/CREATININE RATIO 8 (6-25)
--- NOTE | 2019-08-22 07:30 | NUR ---
Rcvd patient in report this am. Patient is asleep in bed at this time. No s/s of distress noted
[2019-08-22 07:50] VITALS: BP 110/64
[2019-08-22] MEDS: BISACODYL 5 MG TAB EC PO SCH (09:00)
--- NOTE | 2019-08-22 09:00 | NUR ---
Patient is AAOx3. patient lung orourke clear to auscultation. Bowel sounds present x4. No bleeding noted at this time. Left hand IV in place. No c/o pain at this time. Patient ambulates on her own.
[2019-08-22] MEDS: BUPROPION HCL 75 MG TAB PO SCH (09:19)
[2019-08-22] MEDS: IRON SUCROSE 100 MG in SODIUM CHLORIDE 0.9% 100 ML 100 ML IV SCH (09:19)
[2019-08-22 09:42] VITALS: BP 110/64
[2019-08-22] MEDS ORDERED: TRAZODONE HCL50 MG PO (09:49)
[2019-08-22] MEDS ORDERED: CIPRO500 MG PO (09:50)
[2019-08-22] MEDS ORDERED: WELLBUTRIN SR150 MG PO (09:51)
[2019-08-22] MEDS ORDERED: FLAGYL500 MG PO (09:51)
--- NOTE | 2019-08-22 10:01 | Progress Note ---
DATE: SUBJECTIVE: The patient is a 43-year-old female, who came in with abnormal vaginal bleeding, anemia. The patient also had history of suicidal ideation and also with acute colonic diverticulitis. Currently, the patient is feeling better, status post D and C with endometrial sampling. The patient is feeling better. Not suicidal at this time. The patient has been seen by psychiatry. OBJECTIVE: VITAL SIGNS: Temperature is 97.7, pulse of 75, respirations of 18, blood pressure is 118/72, pulse ox of 95%. HEENT: Normocephalic, atraumatic. Pupils are reactive to light and accommodation CVS: S1 and S2 normal. Regular rate and rhythm. ABDOMEN: Tender in the left lower quadrant. EXTREMITIES: No clubbing, no cyanosis, no edema. LABORATORY VALUES: White count is 9.8, hemoglobin is 8.5, hematocrit of 26.5. Chemistry shows sodium 138, potassium 3.8. BUN and creatinine of less 5 and 0.65. Urine was essentially normal. ASSESSMENT: 1. Blood loss anemia. 2. Uncontrolled vaginal bleeding. 3. Diverticulitis. 4. Urinary tract infection. 5. Suicidal ideation. PLAN: Okay to discharge home if okay with Dr. Urrutia. The patient will be discharged and seen in the clinic in about a week's time. The patient to follow up with Dr. Urrutia in about a week. Will be written for Wellbutrin 75 mg twice a day and trazodone 50 at bedtime. We will also discharge the patient on Cipro and Flagyl. MD ANGIE Ingram/ESDRAS /[id number]
--- NOTE | 2019-08-22 10:36 | NUR ---
Removed IV at this time from left hand. Pressure dressing applied.
--- NOTE | 2019-08-22 10:40 | NUR ---
Patient discharged from facility to home. Patient assisted out in wheelchair via staff. Reviewed all discharge instructions, follow up appts, and RX's given. Explained all information to spouse as well.
== END 2019-08-22 10:38 | disposition home or self-care (01) | DRG 744 ==
LOC: ER 11:21 → ERHOLD 12:01 → MED/SURG3 13:20 → IMCU 08-19 20:12 → OBSVTOIN 08-20 12:29 → MED/SURG 08-20 18:27
PROVIDERS: ADMIT Family Medicine; ATTEND Family Medicine
PROC: 0UDB7ZX Extraction of Endometrium, Via Natural or Artificial Opening, Diagnostic (ICD-10-PCS; principal; 2019-08-20 12:17)
DX: D25.9 Leiomyoma of uterus, unspecified (principal); N30.01 Acute cystitis with hematuria; K57.92 Diverticulitis of intestine, part unspecified, without perforation or abscess without bleeding; R45.851 Suicidal ideations; F33.2 Major depressive disorder, recurrent severe without psychotic features; N93.9 Abnormal uterine and vaginal bleeding, unspecified; N93.8 Other specified abnormal uterine and vaginal bleeding; D50.0 Iron deficiency anemia secondary to blood loss (chronic); K44.9 Diaphragmatic hernia without obstruction or gangrene; N95.0 Postmenopausal bleeding; G47.00 Insomnia, unspecified; Z88.8 Allergy status to other drugs, medicaments and biological substances; Z91.040 Latex allergy status
CPT/HCPCS: 36415; 74177; 76830; 80048; 80053; 81001; 82270; 82728; 83540; 84466; 84702; 85025; 88305; 99284; G0378; J0696; J1100; J1756; J1885; J2001; J2250; J2270; J2405; J2590; J2765; J3010; J7030; Q9967